=== PATIENT | male | born 1935 | race Caucasian/White ===

== ENCOUNTER 2022-10-28 10:30 | Emergency (ER) | payer MEDICARE, OTHER, SELFPAY ==
[2022-10-28 10:43] VITALS: BP 151/81; PULSE 69; RESP 18; TEMP 36.1; O2SAT 96; BMI 28.2
[2022-10-28 13:28] VITALS: BP 170/82; PULSE 70; RESP 16; O2SAT 96
--- NOTE | 2022-10-28 13:42 | CRLHL7_ITS ---
For Patients: As a result of the Century Cures Act, medical imaging exams and procedure reports are released immediately into your electronic medical record. You may view this report before your referring provider. If you have questions, please contact your health care provider. INDICATION: Vertigo. TECHNIQUE: CT head without contrast. COMPARISON: MRI scan of the brain 12/12/2020. FINDINGS: CSF spaces: Within normal limits for age. Brain parenchyma and extra-axial spaces: The hess-white differentiation is normal. No sign of mass, hemorrhage, or midline shift. No extra-axial fluid collection. Skull base and calvarium: The visualized paranasal sinuses and mastoid air cells demonstrate no acute or significant findings. The visualized orbits are grossly unremarkable. No skull fractures. IMPRESSION: Unremarkable noncontrast head CT. Please note that all CT scans at this facility use dose modulation, iterative reconstruction, and/or weight-based dosing when appropriate to reduce radiation dose to as low as reasonably achievable. Dictated by Alfonso Reese MD @ 10/28/2022 3:09:32 PM (Electronically Signed)
[2022-10-28 14:17] LABS: Basophils Absolute Auto 0.02 K/uL (0.00-0.30); Basophils Percent Auto 0.3 % (0.0-3.0); Eosinophils Absolute Auto 0.11 K/uL (0.00-0.50); Eosinophils Percent Auto 1.6 % (0.0-7.0); Hematocrit 46.7 % (37.0-53.0); Hemoglobin* 15.6 gm/dL (13.5-17.5); Immature Granulocytes Abs Auto 0.01 K/uL (0.00-0.30); Immature Granulocytes Pct Auto 0.1 %; Mean Corpuscular HGB Conc 33 gm/dL (32-36); Mean Corpuscular Hemoglobin 29 pg (26-34); Mean Corpuscular Volume 87 fL (80-100); Monocytes Percent Auto 5.6 % (0.0-11.0); Neutrophils Percent Auto 76.4 % (42.0-72.0); Platelet Count* 207 K/uL (140-440); RDW Coefficient of Variation % 12.3 % (11.5-15.5); Red Blood Count 5.35 m/uL (4.30-5.90); White Blood Count* 6.75 K/uL (4.50-11.00)
[2022-10-28 14:30] LABS: INR 1.01 (0.91-1.10); Prothrombin Time 13.9 Seconds
[2022-10-28 14:31] LABS: Chloride* 101 mmol/L (96-114); Partial Thromboplastin Time* 29 Seconds (23-33); Potassium* 4.3 mmol/L (3.6-5.1); Sodium* 137 mmol/L (135-149)
[2022-10-28 14:34] LABS: Blood Urea Nitrogen* 18 mg/dL (7-30); Carbon Dioxide* 26 mmol/L (20-32); Creatinine* 0.9 mg/dL (0.5-1.5); Est. Creatinine Clearance* 50.49; Estimated Glomerular Filt Rate 84 ml/min
[2022-10-28 14:35] LABS: Calcium* 9.3 mg/dL (8.4-10.6); Glucose* 99 mg/dL (60-115)
[2022-10-28 14:42] LABS: Slide Review Reflex No
[2022-10-28] MEDS: 0.9 % SODIUM CHLORIDE 1000 ml 1,000 ML IV (14:55)
--- NOTE | 2022-10-28 15:04 | ED.DIZZY ---
HPI - Dizziness General Date Seen: 10/28/22 Chief Complaint: Dizziness/Vertigo Stated Complaint: Lightheaded, disoriented Time Seen by Provider: 10/28/22 13:22 Source: patient and family Mode of arrival: ambulatory Limitations: no limitations History of Present Illness HPI Narrative: Patient is a 87-year-old gentleman who presents here for evaluation of a vertigo, this occurred for the 1st time this morning when he turned over in bed, he did wake up normal feeling and did walk to the bathroom before this occurred. his eyes were closed but he felt the bright light, and then felt the room going around in circles this lasted for a few minutes, then resolve, then the same thing happened twice more when he bent forward, he did not get the bright lights, but felt the feeling of a rotational issues associated with this. Denies any numbness tingling or weakness of his hands or his feet. He was trying to reproduce this well with in the waiting room, there was a long wait to get here into the emergency room, but over the last 2 hours he has had no further symptoms. He does not have a history of any walking issues, balance issues, injury, fevers chills or sweats or other issues. Did not take anything for this is company by his here, he does have a history of seizures, the took a long time to be diagnose, but has been stabilized on Keppra. I do note in his chart he has had MRIs and MRAs of his head, that were reassuring. MD elicited complaint: dizziness and lightheadedness Timing: sudden onset Description: sense of movement and room spinning History of similar symptoms: No Exacerbating factors: change in body position Relieving factors: remaining still Associated symptoms: denies other symptoms Related Data Home Medications Medication Instructions Recorded Confirmed aspirin 81 mg tablet,delayed 81 mg PO .EVERY OTHER DAY 04/15/22 10/28/22 release (Adult Aspirin Regimen) cyanocobalamin (vitamin B-12) 1,000 mcg PO DAILY 04/15/22 10/28/22 1,000 mcg tablet multivitamin (Multiple Vitamins 1 tab PO QDAY 04/15/22 10/28/22 tablet) Previous Rx's Medication Instructions Recorded rosuvastatin 10 mg tablet See Rx Instructions .Route 04/15/22 .COMPLEX #90 tabs levetiracetam 500 mg tablet 500 mg PO BID #180 tabs 08/25/22 Allergies Allergy/AdvReac Type Severity Reaction Status Date / Time No Known Drug Allergies Allergy Verified 06/17/22 11:02 Review of Systems Status of ROS: Reports: 10 or more systems reviewed and unremarkable except as noted in History and below [facility] Medical History Health care directive on file ?Z78.9 - Other specified health status (ICD-10) Surgical History Status post tonsillectomy and adenoidectomy ?Z90.89 - Acquired absence of other organs (ICD-10) Social History Smoking Status: Never smoker How often do you have a drink containing alcohol: never AUDIT-C Alcohol total score: 0 Non-prescribed substance use: denies use Little interest or pleasure in doing things: not at all Feeling down, depressed, or hopeless: not at all Exam Narrative: Exam Narrative: On examination here he is in no apparent distress speaking to me normally speech is very good. Oriented x3 with a GCS of 15/15. His pupils are equal round reactive to light he tracks normally visual colmenares are normal on testing, there is no nystagmus, his at TMs bilaterally are normal his oropharynx normal cranial nerves 3-12 are normal. Normal sensation is noted across his face. Carotid upstrokes are equal bilaterally, his neck is supple full range of motion I am unable to reproduce with movement of his neck what went on. Chest is clear bilaterally with no wheezes crackles easy respirations heart sounds show a blowing 2 out of 6 systolic murmur across the left sternal border, consistent with aortic stenosis. Abdomen is soft there is no guarding no organomegaly, bowel sounds are normal, he moves all extremities independently and well, fine motor movements fingers nose testing, heel-ahumada testing, reflexes, proximal distal muscle strength, a muscle bulk are normal bilaterally skin reveals no petechiae rashes. Const: Vital Signs, click to edit/add: Vital Signs - 24 hr 10/28/22 10:43 10/28/22 13:28 Temperature 97.0 F L Pulse Rate [Right Pulse Oximeter] 69 70 Respiratory Rate 18 16 Blood Pressure [Ri ght Upper Arm] 151/81 H 170/82 H Pulse Oximetry 96 96 Oxygen Delivery Me thod Room Air Room Air Documenting provider has reviewed patient's vital signs: yes Course Course Hospital Course: Reassuring head CT, along with laboratory work he feels good right now, and I think this more likely is benign positional vertigo, unfortunately I think his aortic stenosis is the bigger issue, we will endeavor to get a Cardiology appointment I was able to get the medical equipment technician to do ultrasound here. Patient feels good would like to go Vital Signs Vital signs: Initial Vital Signs Temperature 97.0 F L 10/28/22 10:43 Temperature Source Temporal Artery Scan 10/28/22 10:43 Pulse Rate 69 10/28/22 10:43 Respiratory Rate 18 10/28/22 10:43 Blood Pressure 151/81 H 10/28/22 10:43 Blood Pressure Mean 104 10/28/22 10:43 Blood Pressure Position Sitting 10/28/22 10:43 Pulse Oximetry 96 10/28/22 10:43 Oxygen Delivery Method Room Air 10/28/22 10:43 Vital Signs Temperature 97.0 F L 10/28/22 10:43 Pulse Rate 69 10/28/22 10:43 Respiratory Rate 18 10/28/22 10:43 Blood Pressure 151/81 H 10/28/22 10:43 Pulse Oximetry 96 10/28/22 10:43 Oxygen Delivery Method Room Air 10/28/22 10:43 Temperature 97.0 F L 10/28/22 10:43 Pulse Rate 70 10/28/22 13:28 Respiratory Rate 16 10/28/22 13:28 Blood Pressure 170/82 H 10/28/22 13:28 Pulse Oximetry 96 10/28/22 13:28 Oxygen Delivery Method Room Air 10/28/22 13:28 MDM - Dizziness MDM Narrative Medical decision making narrative: Life-threatening differential diagnosis considered include, CVA, other differential diagnosis include BPPV, labyrinthitis, Meniere's disease, vestibular neuronitis, migraine, multiple sclerosis, otitis media, viral syndrome as well as other etiologies Differential Diagnosis Differential diagnosis: Likely adverse reaction to drug, benign paroxysmal positional vertigo, orthostatic hypotension, vertebral basilar insufficiency, cerebrovascular accident, acute vestibular neuronitis and transient cerebral ischemia Medical Records Attestation: I reviewed the patient's medical records. Lab Data Attestation: I reviewed the patient's lab results. Labs: Lab Results 10/28/22 10/28/22 Range/Units 13:43 14:00 WBC 6.75 (4.50-11.00) K/uL RBC 5.35 (4.30-5.90) m/uL Hgb 15.6 (13.5-17.5) gm/dL Hct 46.7 (37.0-53.0) % MCV 87 (80-100) fL MCH 29 (26-34) pg MCHC 33 (32-36) gm/dL RDW Coeff of Matilde 12.3 (11.5-15.5) % Plt Count 207 (140-440) K/uL Neut % (Auto) 76.4 H (42.0-72.0) % Lymph % (Auto) 16.0 L (20-44) % [place] % (Auto) 5.6 (0.0-11.0) % Eos % (Auto) 1.6 (0.0-7.0) % Baso % (Auto) 0.3 (0.0-3.0) % Neut # (Auto) 5.20 (1.7-7.0) K/uL Lymph # (Auto) 1.10 (0.90-2.90) K/uL [place] # (Auto) 0.40 (0.00-0.90) K/UL Eos # (Auto) 0.11 (0.00-0.50) K/uL Baso # (Auto) 0.02 (0.00-0.30) K/uL Abs Immat Gran (auto) 0.01 (0.00-0.30) K/uL Imm/Tot Granulo (auto) 0.1 % INR 1.01 (0.91-1.10) APTT 29 (23-33) Seconds Sodium 137 (135-149) mmol/L Potassium 4.3 (3.6-5.1) mmol/L Chloride 101 (96-114) mmol/L Carbon Dioxide 26 (20-32) mmol/L BUN 18 (7-30) mg/dL Creatinine 0.9 (0.5-1.5) mg/dL Estimated Creat Clear 50.49 Estimated GFR 84 ml/min Glucose 99 (60-115) mg/dL Calcium 9.3 (8.4-10.6) mg/dL POC Troponin I 0.00 L (0.01-0.04) ng/ml Imaging Data CT scan - head: Attestation: I have reviewed the pertinent imaging results. My impression: No acute findings Radiologist's impression: Patient: CATHERINE MARQUEZ Facility:?[facility] Patient ID:?[id number] Site Patient ID:?[id number]. Site :?[id number] Study:?CT Head w/o-10/28/2022 2:46:52 PM Ordering Physician:Kristin Tavares Final Report: INDICATION: Vertigo. TECHNIQUE: CT head without contrast. COMPARISON: MRI scan of the brain 12/12/2020. FINDINGS: CSF spaces: Within normal limits for age. Brain parenchyma and extra-axial spaces: The hess-white differentiation is normal. No sign of mass, hemorrhage, or midline shift. No extra-axial fluid collection. Skull base and calvarium: The visualized paranasal sinuses and mastoid air cells demonstrate no acute or significant findings. The visualized orbits are grossly unremarkable. No skull fractures. IMPRESSION: Unremarkable noncontrast head CT. Please note that all CT scans at this facility use dose modulation, iterative reconstruction, and/or weight-based dosing when appropriate to reduce radiation dose to as low as reasonably achievable. Dictated by Alfonso Reese MD @ 10/28/2022 3:09:32 PM (Electronic Signature) ECG Data Attestation: I personally reviewed and interpreted this ECG as follows: ECG interpretation date: 10/28/22 ECG interpretation time: 15:33 Prior ECG tracings: available for review Interpretation: EKG shows normal sinus rhythm, Q-waves inferiorly, ventricular rate [address] wave changes, but there is ST wave flattening noted throughout the precordium that is unchanged. Discharge Plan Discharge Clinical Impression: Benign paroxysmal positional vertigo, Aortic stenosis, severe Patient Disposition: Home w/ Parent or Adult Condition: Stable Instructions: Aortic Balloon Valvuloplasty (DC), Aortic Stenosis (ED), Benign Paroxysmal Positional Vertigo (ED), Dizziness (ED), Transcatheter Aortic Valve Replacement (DC), Aortic Valve Replacement (DC) Additional Instructions: Home rest follow-up with Cardiology, we will try to schedule appointment. Return if increasing chest pain shortness of breath any atypical symptoms regarding the vertigo, such as unilateral weakness, falling, vomiting. You will receive a call from the [facility] Cardiology department within the next week to schedule your follow up appointment. If you haven't received a call by then or have any questions, please call [phone]. Prescriptions: No Action multivitamin [Multiple Vitamins] Tablet 1 tab PO QDAY cyanocobalamin (vitamin B-12) 1,000 mcg tablet 1,000 mcg PO DAILY aspirin [Adult Aspirin Regimen] 81 mg tablet,delayed release (DR/EC) 81 mg PO .EVERY OTHER DAY rosuvastatin 10 mg tablet See Rx Instructions .ROUTE .COMPLEX Qty: 90 3RF Dose Instruction: TAKE 1 TABLET BY MOUTH EVERY DAY Rx Instructions: TAKE 1 TABLET BY MOUTH EVERY DAY levetiracetam 500 mg tablet 500 mg PO BID Qty: 180 0RF Follow Up/Referrals: Lex Mckay MD [Primary Care Provider] - Stand Alone Forms: [employer] ([employer]) Info Instructions
== END 2022-10-28 17:18 | disposition home or self-care (01) ==
PROVIDERS: Emergency Provider Family Medicine; PCP Family Medicine
DX: I35.0 Nonrheumatic aortic (valve) stenosis (principal)
CPT/HCPCS: 36415; 70450; 80048; 84484; 85025; 85610; 85730; 93005; 93306; 99284; 99285; J7030

== ENCOUNTER 2022-12-12 09:30 | Outpatient (RCR) | payer MEDICARE, OTHER, SELFPAY ==
--- NOTE | 2022-11-18 07:42 | PT.OPEX ---
PT [place] Outpatient Eval PT [facility] Outpatient Eval Start: 11/14/22 13:09 Freq: Status: Active Protocol: Document 11/14/22 13:10 AMS (Rec: 11/14/22 17:14 AMS [id number]) E-signed By Evelyn Beltran PT Physical Therapy Outpatient Evaluation Insurance Information Recert Due Date 02/07/23 Insurance Name Medicare B Medical Diagnosis Right knee pain Stiffness of right knee Treating Diagnosis Right knee pain Stiffness of right knee Muscle weakness Impaired gait Referring MD Ifrah Webber Subjective Subjective 87 year old man comes to clinic with his for evaluation of right knee pain/ problem. This past winter, slipped on the ice and twisted knee. Was evaluated by Dr. Mckay and had x-rays done. No acute bony abnormality was noted on x-ray per patient report. Since the injury, the knee has caused problems off and on. In the last 2-3 weeks, the knee seems worse: increased pain and decreased range of motion. Most of the pain is associated with trying to completely straighten the leg. He can flex the knee, but the knee doesn't want to straighten completely. Forcing the knee to straighten hurts. Additionally, there is some increased pain with weight bearing/walking. Occasionally the knee will bother him at night. The knee actually feels better in the morning. He is not experiencing the common: it feels worse first thing in the morning. At the same time, the knee will be stiff and sore if he has been sitting for a while and needs to get up and walk. He somewhat associates the worsening of symptoms with standing on concrete in the garage for a prolonged time about three days ago. He has not noted swelling of the knee. He walks with swinging the right leg out to the side. As a result, he is starting to have pain in the right hip = lateral pelvis area. The patient is in the process of being evaluated by cardiology for a heart murmur. The patient and his understand this heart murmur may be related to a defect Evaluation thus far has included testing that has led to the patient being told he has the heart of a 50 year old. -Ifrah Webber, , confirmed by patient Patient notes chronic right knee pain that came on after a fall on ice in April 2022. Notes a twisting mechanism, not exactly sure direction. He landed on his bottom/side with knee bent. X-rays were done, which were negative for fracture. He has not noticed any swelling. Since April, it has overall improved. Functional limitations/ aggravating factors include extending the knee in weightbearing, getting into and out of the car, walking short distances, putting on shoes/socks, and squatting. He localizes the pain to the posterior knee and describes it as an ache with activity. Does not navigate any stairs at home, so not sure if these bother him. He is not using any gait aid. Easing factors include rest. His knee does not bother him at night. Denies catching, clicking, locking, numbness or tingling. No previous knee injuries. He is not currently exercising. Lives at home with his . Pain Comments 0/10 at rest, 8/10 at worst Date of Last Physician Visit 11/12/33 Current Work Status Retired Preferred Name Gene Precautions Treatment Precautions/Contraindications Hyperlipidemia, history of noctural seizure Weight Bearing Status Full Weight Bearing Objective Other/Pertinent Objective GAIT ASSESSMENT: Ambulates with significantly decreased right knee flexion, mildly decreased stance time, and right LE circumduction. No assistive device. OBSERVATION: Swelling: Sweep test: 0 FUNCTIONAL MOBILITY Double leg squat: To 70 deg, mild pain with return to standing SLS: 2 seconds B KNEE ROM R: 5-0-135 L: 5-0-135 HIP ROM (R/L) Flexion: 100/100 Extension: 20/20 Internal Rotation: 10/10 External Rotation: 45/45 Abduction: WNL LLE MMT: Hip flexion: R 4/5 L 5/5 Hip abduction: R 3+/5 L 5/5 Hip extension: R 4/5 L 5/5 Knee flexion: R 5/5 L 5/5 Knee extension: R 5/5 L 5/5 END RANGE QUAD CONTROL Straight leg raise: No quad lag Heel pop: Lacks actively bilaterally, symmetrical SPECIAL TESTS Knee Ligamentous: -Varus 0: - -Varus 30: - -Valgus 0: - -Valgus 30: - -Lachmans: - Knee Meniscus: -Deep Knee Bend: - -Knee Hyperextension: - -Adrienne?s: + right -Joint Line Palpation: - JOINT MOBILITY/PALPATION No TTP over quad tendon, medial/lateral joint line, posterior knee, tibial tuberosity or surrounding landmarks. TX: Patient was educated on anatomy, physiology as it relates to current condition and HEP with use of handout/ [employer]. Patient verbalizes understanding and agrees with POC/goals -Soreness rules with goal of symptoms returning to baseline within 24 hours and that evening -Discussed option to use a cane or crutch if pain does not improve with walking next visit Pt educated in the following exercises to improve range of motion, tissue tolerance, and/ or strength with verbal/ tactile cues as necessary: Access Code: [email or web address] URL: [email or web address] Date: 11/14/2022 Prepared by: Evelyn Beltran Program Notes Weight shifts: bend, straighten, heel, toe - return to start.? Exercises - Long Sitting Knee Extension with Towel Foot Lift - 1 x daily - 7 x weekly - 3 sets - 10 reps - Small Range Straight Leg Raise - 1 x daily - 7 x weekly - 2 sets - 10 reps - Staggered Stance Forward Backward Weight Shift with Unilateral Counter Support - 1 x daily - 7 x weekly - 3 sets - 20 reps - Supine Short Arc Quad - 1 x daily - 7 x weekly - 3 sets - 10 reps Functional Test Performed & Score LEFS: not completely filled out Assessment Assessment/Impression Pt is a 87 -year-old male who presents with concerns of chronic right knee pain and moderate to high severity and irritability. Signs and symptoms are likely indicating / consistent with potential degenerative meniscal tear after a fall on ice in April. X-rays performed and negative for fracture. On exam, patient also demonstrates notable objective findings including full and pain-free knee range of motion , impaired balance, impaired gait, positive Adrienne's, decreased end range quad control bilaterally, and decreased strength, leading to difficulties with extending the knee in weightbearing, getting into and out of the car, walking short distances, putting on shoes/socks, and squatting. Pt ambulates with significantly decreased knee flexion on right; spent portion of today's session working on increased knee flexion during swing through/ normalized gait mechanics. May benefit from gait aid until pain levels decrease if pain with walking does not improve by next visit. Patient is appropriate for skilled physical therapy services to address the above deficits. Pt was agreeable with plan of care and goals established. Primary Functional Limitations extending the knee in weightbearing, getting into and out of the car, walking short distances, putting on shoes/socks, and squatting Plan of Care Rehabilitation Potential Good Physical Therapy Goals In 2 sessions: Pt will demonstrate consistent HEP compliance to ensure progress in reaching established goals during course of care. In 8 sessions: Pt will walk 10 blocks with <2 /10 knee pain for improved community mobility. Pt will squat with <2/10 knee pain for improved ability to perform ADLs. Pt will demonstrate normalized gait mechanics for improved ability to navigate community. Coordination/Communication With Referral Source Treatment Plan/Direct Interventions Electrical Stimulation,Gait Training,Joint Mobilization, Manual Therapy,Neuromuscular Re-ed,Self-Care/Home Management,Therapeutic Activities,Therapeutic Exercises Frequency/Duration 1x/week for 8 weeks Patient Will Be Discharged From Therapy Completion of LTG(s), Independent w/HEP, Independently Progressing Evaluation Billing Untimed Code Treatment Minutes 25 Complexity Low Certification Information Initial Certification Date 11/14/22 Ending Certification Date 02/07/23 Provider Signature Shows Agreement With POC & Medical Necessity Physician Signature & Date Requested Please Sign/Date Here Physician Comment/Change : Physician NPI Number #
== END 2023-02-20 17:26 | disposition home or self-care (01) ==
PROVIDERS: PCP Family Medicine; Visit Provider Family Medicine
DX: M25.561 Pain in right knee (principal); M25.661 Stiffness of right knee, not elsewhere classified; R26.9 Unspecified abnormalities of gait and mobility; M62.81 Muscle weakness (generalized); Z51.89 Encounter for other specified aftercare
CPT/HCPCS: 97110; 97116; 97161

== ENCOUNTER 2023-02-23 13:29 | Outpatient (CLI) | payer MEDICARE, OTHER, SELFPAY | END 2023-02-23 13:30 | disposition home or self-care (01) | LOC: LKVREF 13:29 | PROVIDERS: PCP Family Medicine; Visit Provider Family Medicine | DX: E78.5 Hyperlipidemia, unspecified (principal) | CPT/HCPCS: 80061 ==

== ENCOUNTER 2023-02-26 09:59 | Outpatient (CLI) | payer MEDICARE, OTHER, SELFPAY | END 2023-02-26 10:00 | disposition home or self-care (01) | LOC: NFLDREF 02-27 14:48 | PROVIDERS: PCP Family Medicine; Referring Provider Family Medicine; Visit Provider Family Medicine | DX: H54.61 Unqualified visual loss, right eye, normal vision left eye (principal) | CPT/HCPCS: 86140 ==

== ENCOUNTER 2023-03-02 10:37 | Emergency (ER) | payer MEDICARE, OTHER, SELFPAY ==
[2023-03-02] VITALS (31 sets, daily range): BP systolic 110–152; BP diastolic 72–113; PULSE 65–78; RESP 16; TEMP 36.2–36.7; O2SAT 94–98; BMI 25.8
[2023-03-02 11:42] LABS: Basophils Absolute Auto 0.03 K/uL (0.00-0.30); Basophils Percent Auto 0.5 % (0.0-3.0); Eosinophils Absolute Auto 0.12 K/uL (0.00-0.50); Eosinophils Percent Auto 1.9 % (0.0-7.0); Hematocrit 43.5 % (37.0-53.0); Hemoglobin* 14.3 gm/dL (13.5-17.5); Immature Granulocytes Abs Auto 0.01 K/uL (0.00-0.30); Immature Granulocytes Pct Auto 0.2 %; Lymphocytes Percent Auto 16.5 % (20-44); Mean Corpuscular HGB Conc 33 gm/dL (32-36); Mean Corpuscular Hemoglobin 29 pg (26-34); Mean Corpuscular Volume 89 fL (80-100); Monocytes Percent Auto 5.8 % (0.0-11.0); Neutrophils Percent Auto 75.1 % (42.0-72.0); Platelet Count* 152 K/uL (140-440); RDW Coefficient of Variation % 12.2 % (11.5-15.5); Red Blood Count 4.91 m/uL (4.30-5.90); White Blood Count* 6.18 K/uL (4.50-11.00)
[2023-03-02 11:43] LABS: Slide Review Reflex No
[2023-03-02 12:00] LABS: Albumin* 4.4 g/dL (3.3-5.0); Chloride* 100 mmol/L (96-114); Sodium* 135 mmol/L (135-149)
[2023-03-02 12:02] LABS: Est. Creatinine Clearance* 54.01; Estimated Glomerular Filt Rate 74 ml/min
[2023-03-02 12:03] LABS: Alkaline Phosphatase* 83 U/L (40-150); Anion Gap 7 mEq/L (7-15); Aspartate Amino Transferase* 39 U/L (12-35); Bilirubin Direct* 0.1 mg/dL (0.0-0.5); Bilirubin Total* 0.5 mg/dL (0.1-1.5); Blood Urea Nitrogen* 13 mg/dL (7-30); Calcium* 9.1 mg/dL (8.4-10.6); Carbon Dioxide* 28 mmol/L (20-32); Glucose* 142 mg/dL (60-115); Total Protein* 7.9 g/dL (6.0-8.3)
[2023-03-02 12:04] LABS: Alanine Aminotransferase* 44 U/L (4-50)
[2023-03-02 12:10] LABS: C Reactive Protein* 0.7 mg/dL (0.5-1.0)
[2023-03-02 12:27] LABS: NT Pro B Type NatriureticPept* 240 pg/mL
[2023-03-02 12:29] LABS: Erythrocyte SedimentationRate* 13 mm/hr (2-15)
--- NOTE | 2023-03-02 12:35 | ED_ITS ---
HPI - General Adult General Date Seen: 03/02/23 Chief complaint: Chest Pain Stated complaint: Chest tight, headache post heart valve replacement Time Seen by Provider: 03/02/23 11:05 Source: patient, RN notes reviewed, old records reviewed and other Mode of arrival: ambulatory Limitations: no limitations History of Present Illness HPI narrative: Patient is an 87-year-old male here primarily for some chest tightness which he has had intermittently since yesterday. He feels it more when he lays back, and he says he feels cold at the same time. He describes this as a cold sweat but he is not actually breaking out into a sweat. Symptoms last a minute or 2 and then resolved. He had a TAVR on February 18 and says he was told to come in if he had any chest symptoms. He has had a little bit of a headache and fatigue as well, he says he tried to test for COVID at home but he thinks the screw the test up and the library did not have any more free test so he wondered if we could recheck that as well. He did see Dr. Horan last week and at that time describe some visual symptoms which were subsequently followed up at [facility]. Patient was a little unclear exactly on what happened, he says they did a blood test and told me had a stroke. His aspirin was increased from every other day to daily by Dr. Mckay. I was able to speak with Dr. Saenz who [facility]. 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 She says that she talked to Dr. Mckay, he is on a statin, blood pressure has been good, no other further testing was planned. He is seeing Ophthalmology again in follow-up mid March. He has not had fever cough, no shortness of breath, no pleuritic chest pain. No other anticoagulation he does not smoke, here today with his . Related Data Home Medications Medication Instructions Recorded Confirmed cyanocobalamin (vitamin B-12) 1,000 mcg PO DAILY 04/15/22 03/02/23 1,000 mcg tablet multivitamin (Multiple Vitamins 1 tab PO QDAY 04/15/22 03/02/23 tablet) aspirin 81 mg tablet,delayed 81 mg PO QDAY 02/24/23 03/02/23 release (Adult Aspirin Regimen) famotidine 20 mg tablet 20 mg PO QDAY 02/24/23 03/02/23 Previous Rx's Medication Instructions Recorded rosuvastatin 10 mg tablet See Rx Instructions .Route 04/15/22 .COMPLEX #90 tabs levetiracetam 500 mg tablet 500 mg PO BID #180 tabs 11/24/22 Allergies Allergy/AdvReac Type Severity Reaction Status Date / Time No Known Drug Allergies Allergy Verified 02/23/23 12:55 Review of Systems Status of ROS: Reports: 10 or more systems reviewed and unremarkable except as noted in History and below [facility] Medical History Health care directive on file ?Z78.9 - Other specified health status (ICD-10) Surgical History S/P TAVR (transcatheter aortic valve replacement) ?Z95.2 - Presence of prosthetic heart valve (ICD-10) Status post tonsillectomy and adenoidectomy ?Z90.89 - Acquired absence of other organs (ICD-10) Social History Smoking Status: Never smoker Second hand tobacco smoke exposure: No How often do you have a drink containing alcohol: never AUDIT-C Alcohol total score: 0 Non-prescribed substance use: denies use Little interest or pleasure in doing things: not at all Feeling down, depressed, or hopeless: not at all service: No Exam Narrative: Exam Narrative: Vital signs as noted above. In general, an alert, well-appearing patient. Head: Normocephalic, atraumatic. Eyes: Pupils are equal reactive. Extraocular movements are full. Conjunctivae are normal. ENT: Mucous membranes are moist. Neck: Supple without lymphadenopathy. Heart: Regular rate and rhythm. Soft systolic murmur best heard at the right sternal border. Lungs: Clear bilaterally. No increased work of breathing, crackles or wheezes. Abdomen: Soft and nontender. No organomegaly. Extremities: Well perfused. No edema. No calf tenderness. Pulses intact. Neurologic: Patient is alert and oriented to person and place. Speech is fluent. Face is symmetric. Moves all extremities equally. I did not test visual colmenares. Affect: Normal. Skin: Warm and dry. Well perfused. Const: Vital Signs, click to edit/add: Vital Signs - 24 hr 03/02/23 10:45 03/02/23 10:48 03/02/23 10:52 Temperature 97.2 F L Pulse Rate 75 Pulse Rate [Pulse Oximeter] 75 Respiratory Rate 16 Blood Pressure Blood Pressure [Le ft Upper Arm] 152/113 H Pulse Oximetry 97 97 97 Oxygen Delivery Me thod Room Air 03/02/23 10:54 03/02/23 10:55 03/02/23 11:00 Temperature Pulse Rate 74 75 73 Pulse Rate [Pulse Oximeter] Respiratory Rate 16 Blood Pressure 139/98 H Blood Pressure [Le ft Upper Arm] Pulse Oximetry 98 98 96 Oxygen Delivery Me thod 03/02/23 11:01 03/02/23 11:15 03/02/23 11:16 Temperature Pulse Rate 73 78 76 Pulse Rate [Pulse Oximeter] Respiratory Rate Blood Pressure 132/83 133/96 H Blood Pressure [Le ft Upper Arm] Pulse Oximetry 97 96 97 Oxygen Delivery Me thod 03/02/23 11:30 03/02/23 11:31 03/02/23 11:45 Temperature Pulse Rate 70 71 72 Pulse Rate [Pulse Oximeter] Respiratory Rate Blood Pressure 117/72 Blood Pressure [Le ft Upper Arm] Pulse Oximetry 97 98 96 Oxygen Delivery Me thod 03/02/23 11:46 03/02/23 12:00 03/02/23 12:01 Temperature Pulse Rate 71 68 74 Pulse Rate [Pulse Oximeter] Respiratory Rate 16 Blood Pressure 112/72 123/78 Blood Pressure [Le ft Upper Arm] Pulse Oximetry 97 97 97 Oxygen Delivery Me thod 03/02/23 12:02 03/02/23 12:15 03/02/23 12:16 Temperature Pulse Rate 69 68 70 Pulse Rate [Pulse Oximeter] Respiratory Rate Blood Pressure 122/75 Blood Pressure [Le ft Upper Arm] Pulse Oximetry 96 95 97 Oxygen Delivery Me thod 03/02/23 12:30 03/02/23 12:31 03/02/23 12:32 Temperature Pulse Rate 66 69 68 Pulse Rate [Pulse Oximeter] Respiratory Rate 16 Blood Pressure 120/75 Blood Pressure [Le ft Upper Arm] Pulse Oximetry 94 96 96 Oxygen Delivery Me thod 03/02/23 12:45 03/02/23 12:47 03/02/23 13:00 Temperature Pulse Rate 65 65 66 Pulse Rate [Pulse Oximeter] Respiratory Rate Blood Pressure 144/101 H Blood Pressure [Le ft Upper Arm] Pulse Oximetry 98 98 97 Oxygen Delivery Me thod 03/02/23 13:01 03/02/23 13:15 03/02/23 13:16 Temperature Pulse Rate 66 67 68 Pulse Rate [Pulse Oximeter] Respiratory Rate 16 Blood Pressure 126/79 130/85 Blood Pressure [Le ft Upper Arm] Pulse Oximetry 97 98 96 Oxygen Delivery Me thod 03/02/23 13:30 03/02/23 13:32 03/02/23 13:45 Temperature Pulse Rate 66 71 66 Pulse Rate [Pulse Oximeter] Respiratory Rate Blood Pressure 128/90 H Blood Pressure [Le ft Upper Arm] Pulse Oximetry 97 95 97 Oxygen Delivery Me thod 03/02/23 13:46 Temperature 98.0 F Pulse Rate 68 Pulse Rate [Pulse Oximeter] Respiratory Rate 16 Blood Pressure 110/74 Blood Pressure [Le ft Upper Arm] Pulse Oximetry 97 Oxygen Delivery Me thod Documenting provider has reviewed patient's vital signs: yes Course Course ED Course: On arrival, patient had an EKG which showed a normal sinus rhythm, ventricular rate of 77 beats per minute. No ST segment changes, no OH depression to suggest pericarditis. I did look with the bedside ultrasound and I do not see evidence of pericardial effusion. Troponin is 0. I spoke with [facility] as described in the HPI. Labs here are reassuring, white blood cell count is 6, hemoglobin is 14.3. Metabolic panel is entirely within normal limits, LFTs are unremarkable. BNP is 240, COVID is pending at this time. CRP and sed rate are normal today at 0.7 and 13 respectively. No evidence of giant cell arteritis. With regard to his chest symptoms, etiology is likely going to be on clear. Will wait on the COVID test. Symptoms are relatively benign sounding, positional and fleeting. No evidence of pericarditis. No evidence of myocardial ischemia. COVID was positive. Suspect that this is the cause for the bulk of his symptoms. He has been symptomatic for more than 7 days so Paxlovid not indicated. Seems to be doing well overall. Primary care follow-up as planned based on recent events, optometry follow-up in March as planned. Return at any time for acute worsening. Vital Signs Vital signs: Initial Vital Signs Pulse Oximetry 97 03/02/23 10:45 Vital Signs Pulse Oximetry 97 03/02/23 10:45 Temperature 98.0 F 03/02/23 13:46 Pulse Rate 68 03/02/23 13:46 Respiratory Rate 16 03/02/23 13:46 Blood Pressure 110/74 03/02/23 13:46 Pulse Oximetry 97 03/02/23 13:46 Oxygen Delivery Method Room Air 03/02/23 10:48 Medical Decision Making Lab Data Labs: Lab Results 03/02/23 03/02/23 Range/Units 10:50 12:00 WBC 6.18 (4.50-11.00) K/uL RBC 4.91 (4.30-5.90) m/uL Hgb 14.3 (13.5-17.5) gm/dL Hct 43.5 (37.0-53.0) % MCV 89 (80-100) fL MCH 29 (26-34) pg MCHC 33 (32-36) gm/dL RDW Coeff of Matilde 12.2 (11.5-15.5) % Plt Count 152 (140-440) K/uL Neut % (Auto) 75.1 H (42.0-72.0) % Lymph % (Auto) 16.5 L (20-44) % [place] % (Auto) 5.8 (0.0-11.0) % Eos % (Auto) 1.9 (0.0-7.0) % Baso % (Auto) 0.5 (0.0-3.0) % Neut # (Auto) 4.60 (1.7-7.0) K/uL Lymph # (Auto) 1.00 (0.90-2.90) K/uL [place] # (Auto) 0.40 (0.00-0.90) K/UL Eos # (Auto) 0.12 (0.00-0.50) K/uL Baso # (Auto) 0.03 (0.00-0.30) K/uL Abs Immat Gran (auto) 0.01 (0.00-0.30) K/uL Imm/Tot Granulo (auto) 0.2 % ESR 13 (2-15) mm/hr Sodium 135 (135-149) mmol/L Potassium 4.0 (3.6-5.1) mmol/L Chloride 100 (96-114) mmol/L Carbon Dioxide 28 (20-32) mmol/L Anion Gap 7 (7-15) mEq/L BUN 13 (7-30) mg/dL Creatinine 1.0 (0.5-1.5) mg/dL Estimated Creat Clear 54.01 Estimated GFR 74 ml/min Glucose 142 H (60-115) mg/dL Calcium 9.1 (8.4-10.6) mg/dL Total Bilirubin 0.5 (0.1-1.5) mg/dL Direct Bilirubin 0.1 (0.0-0.5) mg/dL AST 39 H (12-35) U/L ALT 44 (4-50) U/L Alkaline Phosphatase 83 (40-150) U/L C-Reactive Protein 0.7 (0.5-1.0) mg/dL NT-Pro-B Natriuret Pep 240 pg/mL Total Protein 7.9 (6.0-8.3) g/dL Albumin 4.4 (3.3-5.0) g/dL SARS-CoV-2 (PCR) POSITIVE SARS-CoV-2 A (Negative) Influenza Type A (PCR) Negative PCR FLU A (Negative) Influenza Type B (PCR) Negative PCR FLU B (Negative) RSV (PCR) Negative PCR RSV (Negative) POC Troponin I 0.00 L (0.01-0.04) ng/ml Discharge Plan Discharge Clinical Impression: COVID-19 Patient Disposition: Home w/ Parent or Adult Condition: Stable Instructions: COVID-19 (Coronavirus Disease 2019) (ED) Prescriptions: No Action multivitamin [Multiple Vitamins] Tablet 1 tab PO QDAY cyanocobalamin (vitamin B-12) 1,000 mcg tablet 1,000 mcg PO DAILY rosuvastatin 10 mg tablet See Rx Instructions .ROUTE .COMPLEX Qty: 90 3RF Dose Instruction: TAKE 1 TABLET BY MOUTH EVERY DAY Rx Instructions: TAKE 1 TABLET BY MOUTH EVERY DAY levetiracetam 500 mg tablet 500 mg PO BID Qty: 180 2RF famotidine 20 mg tablet 20 mg PO QDAY aspirin [Adult Aspirin Regimen] 81 mg tablet,delayed release (DR/EC) 81 mg PO QDAY Follow Up/Referrals: Lex Mckay MD [Primary Care Provider] - Stand Alone Forms: [facility] Inst[facility]
[2023-03-02 12:48] LABS: PCR FLU A Negative PCR FLU A (Negative); PCR FLU B Negative PCR FLU B (Negative); PCR RSV Negative PCR RSV (Negative)
[2023-03-02 13:06] LABS: SARS PCR* POSITIVE SARS-CoV-2 (Negative)
== END 2023-03-02 13:56 | disposition home or self-care (01) ==
PROVIDERS: Emergency Provider Emergency Medicine; PCP Family Medicine
DX: U07.1 COVID-19 (principal)
CPT/HCPCS: 36415; 80048; 80076; 83880; 84484; 85025; 85651; 86140; 87631; 94761; 95992; 99284

== ENCOUNTER 2023-03-23 10:12 | Emergency (ER) | payer MEDICARE, OTHER, SELFPAY ==
[2023-03-23] VITALS (7 sets, daily range): BP systolic 112–120; BP diastolic 74–87; PULSE 66–77; RESP 12–18; TEMP 36.9; O2SAT 95–98; BMI 26.6
--- NOTE | 2023-03-23 10:44 | CRLHL7_ITS ---
For Patients: As a result of the Century Cures Act, medical imaging exams and procedure reports are released immediately into your electronic medical record. You may view this report before your referring provider. If you have questions, please contact your health care provider. INDICATION: Acute stroke, right arm and leg paresthesias. TECHNIQUE: CTA neck with contrast bolus tracking, 3D angiographic rendering using maximum intensity projection (MIP) and images permanently archived. FINDINGS: There is minor carotid atherosclerosis. There is no significant carotid artery stenosis or dissection. There is no significant vertebral artery stenosis or dissection. The soft tissues of the neck are within normal limits. The cervical spine is in normal alignment. Degenerative changes are noted in the cervical spine. IMPRESSION: No significant carotid or vertebral artery stenosis or dissection. Please note that all CT scans at this facility use dose modulation, iterative reconstruction, and/or weight-based dosing when appropriate to reduce radiation dose to as low as reasonably achievable. Dictated by Matteo Candelaria MD @ 03/23/2023 11:52:20 AM (Electronically Signed)
--- NOTE | 2023-03-23 10:44 | CRLHL7_ITS ---
For Patients: As a result of the Century Cures Act, medical imaging exams and procedure reports are released immediately into your electronic medical record. You may view this report before your referring provider. If you have questions, please contact your health care provider. INDICATION: Acute stroke, right arm and leg paresthesias. TECHNIQUE: CTA head with contrast bolus tracking, 3D angiographic rendering using maximum intensity projection (MIP) and images permanently archived. FINDINGS: There is scattered intracranial atherosclerotic disease. There is normal opacification of the intracranial vasculature. There is no large vessel occlusion. No aneurysm is identified. IMPRESSION: No large vessel occlusion. Please note that all CT scans at this facility use dose modulation, iterative reconstruction, and/or weight-based dosing when appropriate to reduce radiation dose to as low as reasonably achievable. Dictated by Matteo Candelaria MD @ 03/23/2023 11:50:21 AM (Electronically Signed)
--- NOTE | 2023-03-23 10:44 | CRLHL7_ITS ---
For Patients: As a result of the Century Cures Act, medical imaging exams and procedure reports are released immediately into your electronic medical record. You may view this report before your referring provider. If you have questions, please contact your health care provider. Indication: Fall Technique: Volumetric multidetector CT images of the head were obtained without the administration of low osmolar intravenous contrast. Comparison: None available Findings: There is no intra-axial or extra-axial fluid collection. There is no mass effect or midline shift. There is age-related cortical atrophy with mild sulcal widening and ex vacuo dilatation of the lateral ventricles. There are chronic small vessel disease changes in the subcortical and periventricular white matter without lost hess-white differentiation. The orbits and their contents are grossly within normal limits. The bony calvarium is grossly intact. There is bubbly secretions and likely nondisplaced injury of the right maxillary sinus posterior wall. The mastoid air cells are well aerated. 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 Minimal bubbly secretions in the right maxillary sinus with questionable deformity of the right posterior maxillary sinus wall which may represent nondisplaced fracture. Correlate with history of injury. Please note that all CT scans at this facility use dose modulation, iterative reconstruction, and/or weight-based dosing when appropriate to reduce radiation dose to as low as reasonably achievable. Dictated by Tae Be MD @ 03/23/2023 11:47:03 AM (Electronically Signed)
--- NOTE | 2023-03-23 10:45 | ED.NURSE ---
Per , stroke code not to be called.
--- NOTE | 2023-03-23 10:47 | CRLHL7_ITS ---
For Patients: As a result of the Century Cures Act, medical imaging exams and procedure reports are released immediately into your electronic medical record. You may view this report before your referring provider. If you have questions, please contact your health care provider. INDICATION: Right arm/leg paresthesias. TECHNIQUE: Multiplanar multisequence noncontrast MR images of the brain. COMPARISON: CT brain 03/23/2023, MRI brain 12/12/2020. FINDINGS: Mild diffuse cerebral volume loss. No mass effect or midline shift. No parenchymal signal abnormalities. No diffusion restriction to suggest acute infarction. No intracranial hemorrhage or pathologic extra-axial fluid collection. The major arterial flow voids of the skullbase are preserved. The globes are symmetric. [id number] right maxillary sinus mucosal thickening. Small left mastoid effusion. IMPRESSION: 1. No acute intracranial abnormality. No significant change compared to the prior exam. 2. Mild diffuse cerebral volume loss. Dictated by Gilbert Brock MD @ 03/23/2023 11:53:11 AM (Electronically Signed)
--- NOTE | 2023-03-23 10:48 | ED.GENADULT ---
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 He does not have a history of atrial fibrillation or stroke otherwise, he takes a baby aspirin every day, no other anticoagulation. I saw him within the past couple of weeks with some chest tightness and headache, COVID was positive, other workup was negative. He comes in today by ambulance saying that since Thursday night he has had several episodes of right arm numbness, more specifically paresthesias. Occasionally he notes some clumsiness of the right hand and occasionally he also has paresthesias in his right leg. He has had some chest tightness on and off as well although this, similarly to last time I saw him, tends to be when he lays back and is not exertional. It is not associated with the arm and leg symptoms either. He says that the arm numbness will last several minutes at a time and then go away. He estimates he has had at less than 10 times since Thursday, presents to the ER on Thursday morning after talking to cardiac rehab this morning and being advised to come in. He was symptomatic in terms of the right arm at the time I began speaking with him although symptoms faded while I was in the room. He is not currently having chest tightness. Related Data Home Medications Medication Instructions Recorded Confirmed cyanocobalamin (vitamin B-12) 1,000 mcg PO DAILY 04/15/22 03/23/23 1,000 mcg tablet multivitamin (Multiple Vitamins 1 tab PO QDAY 04/15/22 03/23/23 tablet) aspirin 81 mg tablet,delayed 81 mg PO QDAY 02/24/23 03/23/23 release (Adult Aspirin Regimen) famotidine 20 mg tablet 20 mg PO QDAY 02/24/23 03/23/23 Previous Rx's Medication Instructions Recorded rosuvastatin 10 mg tablet See Rx Instructions .Route 04/15/22 .COMPLEX #90 tabs levetiracetam 500 mg tablet 500 mg PO BID #180 tabs 11/24/22 Allergies Allergy/AdvReac Type Severity Reaction Status Date / Time No Known Drug Allergies Allergy Verified 03/23/23 11:30 Review of Systems Status of ROS: Reports: 10 or more systems reviewed and unremarkable except as noted in History and below [facility] Medical History Health care directive on file ?Z78.9 - Other specified health status (ICD-10) Surgical History S/P TAVR (transcatheter aortic valve replacement) ?Z95.2 - Presence of prosthetic heart valve (ICD-10) Status post tonsillectomy and adenoidectomy ?Z90.89 - Acquired absence of other organs (ICD-10) Social History Smoking Status: Never smoker Second hand tobacco smoke exposure: No How often do you have a drink containing alcohol: never AUDIT-C Alcohol total score: 0 Non-prescribed substance use: denies use Little interest or pleasure in doing things: not at all Feeling down, depressed, or hopeless: not at all service: No Exam Narrative: Exam Narrative: Vital signs as noted above. In general, an alert, nontoxic elderly male. Conversant, appears comfortable. Head: Normocephalic, atraumatic. Eyes: Pupils are equal reactive. Extraocular movements are full. Conjunctivae are normal. Visual colmenares were not assessed. ENT: Mucous membranes are moist. Throat is normal. Neck: Supple without lymphadenopathy. Heart: Regular rate and rhythm. No murmur or rub. Lungs: Clear bilaterally. No increased work of breathing, crackles or wheezes. Abdomen: Soft and nontender. No organomegaly. Extremities: Well perfused. No edema. No calf tenderness. Pulses intact. Neurologic: Patient is alert and oriented to person and place. Speech is fluent. Face is symmetric. Moves all extremities equally. Strength is 5 of 5 in bilateral upper and lower extremities, sensation is intact to light touch, fine motor function is intact bilaterally. Cerebellar function is intact by finger-nose testing. Affect: Normal. Skin: Warm and dry. Well perfused. Const: Vital Signs, click to edit/add: Vital Signs - 24 hr 03/23/23 10:24 03/23/23 10:28 03/23/23 10:31 Temperature 98.4 F Pulse Rate 77 76 Pulse Rate [Left P ulse Oximeter] 76 Respiratory Rate 18 14 12 Blood Pressure 115/87 117/74 Blood Pressure [Le ft Upper Arm] 115/87 Pulse Oximetry 96 97 95 Oxygen Delivery Me thod Room Air Room Air Documenting provider has reviewed patient's vital signs: yes Course Course ED Course: Patient had an EKG on arrival that showed a sinus rhythm, ventricular rate of 78 beats per minute. No ST segment changes, normal T-waves. I reviewed his records including my previous interaction with him on March 02. Given this ischemic event to the optic nerve I would did elect to do neurologic imaging because of these paresthesias he has had on the right. He had a CT of the head without contrast which I reviewed and did not see any evidence of obvious ischemic changes or hemorrhage. Read as negative by Radiology. He had a CT angiogram of the head and neck read as showing minor carotid stenoses, nothing significant. He had an MRI of the brain read as negative aside from age related changes by Radiology. His labs were entirely normal including CBC, metabolic panel, LFTs. Point of care troponin was 0.01. Case was discussed with Dr. Vazquez who was on-call for Neurology at [place], as well as Dr. Zelaya, who was on-call for Cardiology. Dr. Vazquez felt it would be reasonable to increase him from a baby aspirin to a full size aspirin every day, and also felt that he should have monitoring for AFib. Overall, cause for his paresthesias unclear at this time given normal brain imaging. Cardiology did feel that a ZIO patch was reasonable, may also need evaluation to look for any evidence of clot on the valve although she thought that was unlikely. She said that she would have somebody contact him to get him into Cardiology [facility] for further evaluation and placement of ZIO patch. I relayed all of this to the patient and his , they are comfortable with that plan. Stable for discharge home. Vital Signs Vital signs: Initial Vital Signs Temperature 98.4 F 03/23/23 10:24 Temperature Source Temporal Artery Scan 03/23/23 10:24 Pulse Rate 76 03/23/23 10:24 Respiratory Rate 18 03/23/23 10:24 Blood Pressure 115/87 03/23/23 10:24 Blood Pressure Mean 96 03/23/23 10:24 Blood Pressure Position Sitting 03/23/23 10:24 Pulse Oximetry 96 03/23/23 10:24 Oxygen Delivery Method Room Air 03/23/23 10:24 Vital Signs Temperature 98.4 F 03/23/23 10:24 Pulse Rate 76 03/23/23 10:24 Respiratory Rate 18 03/23/23 10:24 Blood Pressure 115/87 03/23/23 10:24 Pulse Oximetry 96 03/23/23 10:24 Oxygen Delivery Method Room Air 03/23/23 10:24 Temperature 98.4 F 03/23/23 10:24 Pulse Rate 76 03/23/23 10:31 Respiratory Rate 12 03/23/23 10:31 Blood Pressure 117/74 03/23/23 10:31 Pulse Oximetry 95 03/23/23 10:31 Oxygen Delivery Method Room Air 03/23/23 10:31 Medications Administered Medications: Discontinued Medications Generic Name Dose Route Start Last Admin Trade Name Freq PRN Reason Stop Dose Admin Aspirin 324 mg 03/23/23 10:43 03/23/23 11:45 Aspirin 81 Mg Tab.Chew PO 03/23/23 10:44 324 mg ONCE ONE Administration Medical Decision Making Lab Data Labs: Lab Results 03/23/23 Range/Units 10:33 WBC 5.86 (4.50-11.00) K/uL RBC 4.71 (4.30-5.90) m/uL Hgb 13.9 (13.5-17.5) gm/dL Hct 41.4 (37.0-53.0) % MCV 88 (80-100) fL MCH 30 (26-34) pg MCHC 34 (32-36) gm/dL RDW Coeff of Matilde 12.2 (11.5-15.5) % Plt Count 156 (140-440) K/uL Neut % (Auto) 72.7 H (42.0-72.0) % Lymph % (Auto) 18.4 L (20-44) % [place] % (Auto) 5.3 (0.0-11.0) % Eos % (Auto) 2.7 (0.0-7.0) % Baso % (Auto) 0.7 (0.0-3.0) % Neut # (Auto) 4.30 (1.7-7.0) K/uL Lymph # (Auto) 1.10 (0.90-2.90) K/uL [place] # (Auto) 0.30 (0.00-0.90) K/UL Eos # (Auto) 0.16 (0.00-0.50) K/uL Baso # (Auto) 0.04 (0.00-0.30) K/uL Abs Immat Gran (auto) 0.01 (0.00-0.30) K/uL Imm/Tot Granulo (auto) 0.2 % Sodium 139 (135-149) mmol/L Potassium 3.9 (3.6-5.1) mmol/L Chloride 105 (96-114) mmol/L Carbon Dioxide 28 (20-32) mmol/L Anion Gap 6 L (7-15) mEq/L BUN 16 (7-30) mg/dL Creatinine 1.1 (0.5-1.5) mg/dL Estimated Creat Clear 47.50 Estimated GFR 66 ml/min Glucose 134 H (60-115) mg/dL Calcium 8.9 (8.4-10.6) mg/dL Total Bilirubin 0.6 (0.1-1.5) mg/dL Direct Bilirubin 0.0 (0.0-0.5) mg/dL AST 35 (12-35) U/L ALT 31 (4-50) U/L Alkaline Phosphatase 73 (40-150) U/L C-Reactive Protein < 0.5 L (0.5-1.0) mg/dL Total Protein 7.5 (6.0-8.3) g/dL Albumin 4.4 (3.3-5.0) g/dL POC Troponin I 0.01 (0.01-0.04) ng/ml Discharge Plan Discharge Clinical Impression: Paresthesia of right upper and lower extremity, Chest pain Patient Disposition: Home, Self-Care Condition: Improved Instructions: Chest Pain (DC), Paresthesia (ED) Additional Instructions: You should get a call from the Cardiology Clinic at [place] to schedule a follow-up visit with them and set up a ZIO patch. Your workup today however is very reassuring, there is not evidence of significant narrowing of blood vessels or obvious stroke on your MRI/CT. The neurologist does recommend that you increase your aspirin from a baby aspirin (81 mg) to a regular aspirin (324 mg) daily. Return at any time for acute severe symptoms. Prescriptions: No Action multivitamin [Multiple Vitamins] Tablet 1 tab PO QDAY cyanocobalamin (vitamin B-12) 1,000 mcg tablet 1,000 mcg PO DAILY rosuvastatin 10 mg tablet See Rx Instructions .ROUTE .COMPLEX Qty: 90 3RF Dose Instruction: TAKE 1 TABLET BY MOUTH EVERY DAY Rx Instructions: TAKE 1 TABLET BY MOUTH EVERY DAY levetiracetam 500 mg tablet 500 mg PO BID Qty: 180 2RF famotidine 20 mg tablet 20 mg PO QDAY aspirin [Adult Aspirin Regimen] 81 mg tablet,delayed release (DR/EC) 81 mg PO QDAY Follow Up/Referrals: Lex Mckay MD [Primary Care Provider] - Stand Alone Forms: [employer] Info Instructions
[2023-03-23 10:59] LABS: Basophils Absolute Auto 0.04 K/uL (0.00-0.30); Basophils Percent Auto 0.7 % (0.0-3.0); Eosinophils Absolute Auto 0.16 K/uL (0.00-0.50); Eosinophils Percent Auto 2.7 % (0.0-7.0); Hematocrit 41.4 % (37.0-53.0); Hemoglobin* 13.9 gm/dL (13.5-17.5); Immature Granulocytes Abs Auto 0.01 K/uL (0.00-0.30); Immature Granulocytes Pct Auto 0.2 %; Lymphocytes Percent Auto 18.4 % (20-44); Mean Corpuscular HGB Conc 34 gm/dL (32-36); Mean Corpuscular Hemoglobin 30 pg (26-34); Mean Corpuscular Volume 88 fL (80-100); Monocytes Percent Auto 5.3 % (0.0-11.0); Neutrophils Percent Auto 72.7 % (42.0-72.0); Platelet Count* 156 K/uL (140-440); RDW Coefficient of Variation % 12.2 % (11.5-15.5); Red Blood Count 4.71 m/uL (4.30-5.90); White Blood Count* 5.86 K/uL (4.50-11.00)
[2023-03-23 11:11] LABS: Chloride* 105 mmol/L (96-114); Sodium* 139 mmol/L (135-149)
[2023-03-23 11:12] LABS: Potassium* 3.9 mmol/L (3.6-5.1)
[2023-03-23 11:13] LABS: Albumin* 4.4 g/dL (3.3-5.0)
[2023-03-23 11:14] LABS: Creatinine* 1.1 mg/dL (0.5-1.5); Estimated Glomerular Filt Rate 66 ml/min
[2023-03-23 11:15] LABS: Anion Gap 6 mEq/L (7-15); Bilirubin Total* 0.6 mg/dL (0.1-1.5); Blood Urea Nitrogen* 16 mg/dL (7-30); Calcium* 8.9 mg/dL (8.4-10.6); Carbon Dioxide* 28 mmol/L (20-32); Glucose* 134 mg/dL (60-115); Total Protein* 7.5 g/dL (6.0-8.3)
[2023-03-23 11:16] LABS: Alanine Aminotransferase* 31 U/L (4-50); Alkaline Phosphatase* 73 U/L (40-150); Aspartate Amino Transferase* 35 U/L (12-35)
[2023-03-23 11:20] LABS: C Reactive Protein* < 0.5 mg/dL (0.5-1.0)
[2023-03-23 11:22] LABS: Slide Review Reflex No
[2023-03-23 11:32] LABS: Troponin, Point-of-Care* 0.01 ng/ml (0.01-0.04)
[2023-03-23] MEDS: ASPIRIN 81 MG TAB.CHEW 324 MG PO (11:45)
== END 2023-03-23 13:02 | disposition home or self-care (01) ==
PROVIDERS: Emergency Provider Emergency Medicine; PCP Family Medicine
DX: R07.9 Chest pain, unspecified (principal); R20.2 Paresthesia of skin
CPT/HCPCS: 36415; 70450; 70496; 70498; 70551; 80048; 80076; 84484; 85025; 86140; 93005; 99284; 99285; A9270; Q9967

== ENCOUNTER 2023-05-20 12:41 | Outpatient (CLI) | payer MEDICARE, OTHER, SELFPAY | END 2023-05-20 12:42 | disposition home or self-care (01) | LOC: NFLDREF 06-03 08:44 | PROVIDERS: PCP Family Medicine; Referring Provider Family Medicine; Visit Provider Family Medicine | DX: Z79.01 Long term (current) use of anticoagulants (principal) | CPT/HCPCS: 85610 ==

== ENCOUNTER 2023-08-23 15:42 | Emergency (ER) | payer MEDICARE, OTHER, SELFPAY ==
[2023-08-23 15:48] VITALS: BP 154/75; PULSE 68; RESP 16; TEMP 36.9; O2SAT 96; BMI 25.1
--- NOTE | 2023-08-23 16:18 | CRLHL7_ITS ---
For Patients: As a result of the Century Cures Act, medical imaging exams and procedure reports are released immediately into your electronic medical record. You may view this report before your referring provider. If you have questions, please contact your health care provider. INDICATION: weakness/s/p taver TECHNIQUE: CT of the head without contrast. Coronal and sagittal reformats. Bone and soft tissue algorithms. COMPARISON: MRI of 03/23/2023, CT 03/23/2023 FINDINGS: No acute intracranial hemorrhage or extra-axial collection. No evidence of acute cortical infarction. No mass effect or midline shift. Mild generalized parenchymal volume loss. Mild regions of decreased attenuation within the periventricular and subcortical white matter of both cerebral hemispheres most likely reflects chronic microvascular ischemic disease and age related change in this patient. Vascular calcifications within the carotid siphons. Orbital contents are normal. No calvarial fractures. No lytic or sclerotic osseous lesions within the calvarium or skull base. Scalp and other imaged soft tissue structures are normal. Mastoid air cells are clear. IMPRESSION: No acute intracranial abnormality. No significant changes compared to the prior exam. Please note that all CT scans at this facility use dose modulation, iterative reconstruction, and/or weight-based dosing when appropriate to reduce radiation dose to as low as reasonably achievable. Dictated by Riley Cadena MD @ 08/23/2023 4:52:28 PM (Electronically Signed)
--- NOTE | 2023-08-23 16:20 | ED_ITS ---
HPI - General Adult General Chief complaint: Neuro Symptoms/Altered Deficit Stated complaint: Intermittent fever/numbness Time Seen by Provider: 08/23/23 15:58 History of Present Illness HPI narrative: 87-year-old white male who in February had a TAVR procedure for aortic stenosis, he got put on Coumadin in April by the [facility] floral specialist. He reports that since starting Coumadin he has had some intermittent numbness feeling and tingling in his upper chest occasionally in his head, he had 1 episode of imbalance. He denies any focal neurologic weakness denies any chest pain, breathing problem, leg swelling or edema. His INR has been followed carefully it has been normal. He works with Dr. Noble is adjusted his medicine and they have not noticed much difference with this. He does have remote history of seizure but has not had these for some time and he is on Lamictal. He is concerned about this and wants to have it looked at. He does not feel anxious, although he says this happens perhaps every 3rd day every 5th day and he will gets some tingling in his body and little passed within a few seconds to a half a minute. He reports he does not feel stressed or anxious with this. Although he has just had a major cardiac procedure. Related Data Home Medications ?Medication ?Instructions ?Recorded ?Confirmed cyanocobalamin (vitamin B-12) 1,000 mcg PO DAILY 04/15/22 08/23/23 1,000 mcg tablet multivitamin (Multiple Vitamins 1 tab PO QDAY 04/15/22 08/23/23 tablet) famotidine 20 mg tablet 20 mg PO QDAY 02/24/23 08/23/23 Previous Rx's ?Medication ?Instructions ?Recorded rosuvastatin 10 mg tablet See Rx Instructions .Route 04/13/23 .COMPLEX #90 tabs warfarin 3 mg tablet 4.5 mg PO QDAY #136 tabs 07/09/23 levetiracetam 500 mg tablet 500 mg PO BID #180 tabs 08/21/23 Allergies Allergy/AdvReac Type Severity Reaction Status Date / Time No Known Drug Allergies Allergy Verified 03/23/23 11:30 Review of Systems Status of ROS: Reports: 6 or more systems reviewed and unremarkable except as noted in History and below PFS PFS Medical History COVID-19 ?U07.1 - COVID-19 (ICD-10) Health care directive on file ?Z78.9 - Other specified health status (ICD-10) Surgical History S/P TAVR (transcatheter aortic valve replacement) ?Z95.2 - Presence of prosthetic heart valve (ICD-10) Status post tonsillectomy and adenoidectomy ?Z90.89 - Acquired absence of other organs (ICD-10) Social History Smoking Status: Never smoker Second hand tobacco smoke exposure: No How often do you have a drink containing alcohol: never AUDIT-C Alcohol total score: 0 Non-prescribed substance use: denies use Little interest or pleasure in doing things: not at all Feeling down, depressed, or hopeless: not at all service: No Exam Narrative: Exam Narrative: Objective: Patient is alert orient x3 in no distress, no ambulatory, appears much younger than stated age His vital signs look unremarkable other than slightly elevated blood pressure. He is afebrile HEENT is unremarkable no facial asymmetry no weakness no mouth findings Neck is supple Chest clear Heart rate and rhythm regular with 2 6 systolic murmur, no ectopy noted Abdomen benign soft Extremities normal strength sensation upper lower extremities Const: Vital Signs, click to edit/add: Vital Signs - 24 hr 08/23/23 15:48 Temperature 98.4 F Pulse Rate [Pulse Oximeter] 68 Respiratory Rate 16 Blood Pressure [Ri ght Upper Arm] 154/75 H Pulse Oximetry 96 Oxygen Delivery Me thod Room Air Course Vital Signs Vital signs: Initial Vital Signs Temperature 98.4 F 08/23/23 15:48 Temperature Source Temporal Artery Scan 08/23/23 15:48 Pulse Rate 68 08/23/23 15:48 Respiratory Rate 16 08/23/23 15:48 Blood Pressure 154/75 H 08/23/23 15:48 Blood Pressure Mean 101 08/23/23 15:48 Blood Pressure Position Sitting 08/23/23 15:48 Pulse Oximetry 96 08/23/23 15:48 Oxygen Delivery Method Room Air 08/23/23 15:48 Vital Signs Temperature 98.4 F 08/23/23 15:48 Pulse Rate 68 08/23/23 15:48 Respiratory Rate 16 08/23/23 15:48 Blood Pressure 154/75 H 08/23/23 15:48 Pulse Oximetry 96 08/23/23 15:48 Oxygen Delivery Method Room Air 08/23/23 15:48 Temperature 98.4 F 08/23/23 15:48 Pulse Rate 68 08/23/23 15:48 Respiratory Rate 16 08/23/23 15:48 Blood Pressure 154/75 H 08/23/23 15:48 Pulse Oximetry 96 08/23/23 15:48 Oxygen Delivery Method Room Air 08/23/23 15:48 Medical Decision Making MDM Narrative Medical decision making narrative: [age] year white male with a recent TAVR procedure on Coumadin with a therapeutic INR. With some intermittent tingly feeling across his chest. I suspect this may be anxiety related but he does not feel it is. I think it be reasonable to check out a head CT scan again as well as EKG, troponin, lab studies. The the thought is that this could be atypical seizure type issue but that does not seem logical given it is not focal and given its unusual presentation. I do not think this is related to his Coumadin usage. I think he will get the above-mentioned workup and then I would recommend he follow up with Cardiology as planned and perhaps see Dr. Horan next week or so to discuss his symptoms. Addendum 5:38 p.m.: The page the patient has a negative head CT, he has an EKG that looks unremarkable other than occasional PVC: Patient's lab studies look reassuring, his CBC looks unremarkable, his INR is 2.10, ER profile is unremarkable CRP is negative Point of care troponin is 0. At this point I do not have a great explanation for why he gets occasional tingling in his chest and upper body, but I suspect he may have an anxiety component. He should talk about this with Dr. Horan. Perhaps some antianxiety medicine might be helpful for him Lab Data Labs: Lab Results 08/23/23 08/23/23 Range/Units 16:19 16:36 WBC 5.73 (4.50-11.00) K/uL RBC 4.72 (4.30-5.90) m/uL Hgb 13.9 (13.5-17.5) gm/dL Hct 42.4 (37.0-53.0) % MCV 90 (80-100) fL MCH 29 (26-34) pg MCHC 33 (32-36) gm/dL RDW Coeff of Matilde 12.8 (11.5-15.5) % Plt Count 180 (140-440) K/uL Neut % (Auto) 70.0 (42.0-72.0) % Lymph % (Auto) 18.8 L (20-44) % [place] % (Auto) 7.9 (0.0-11.0) % Eos % (Auto) 2.6 (0.0-7.0) % Baso % (Auto) 0.5 (0.0-3.0) % Neut # (Auto) 4.01 (1.7-7.0) K/uL Lymph # (Auto) 1.10 (0.90-2.90) K/uL [place] # (Auto) 0.50 (0.00-0.90) K/UL Eos # (Auto) 0.15 (0.00-0.50) K/uL Baso # (Auto) 0.03 (0.00-0.30) K/uL Abs Immat Gran (auto) 0.01 (0.00-0.30) K/uL Imm/Tot Granulo (auto) 0.2 % INR 2.10 H (0.91-1.10) Sodium 138 (135-149) mmol/L Potassium 4.2 (3.6-5.1) mmol/L Chloride 105 (96-114) mmol/L Carbon Dioxide 27 (20-32) mmol/L Anion Gap 6 L (7-15) mEq/L BUN 23 (7-30) mg/dL Creatinine 1.2 (0.5-1.5) mg/dL Estimated Creat Clear 45.01 Estimated GFR 59 ml/min Glucose 111 (60-115) mg/dL Calcium 9.0 (8.4-10.6) mg/dL Total Bilirubin 0.7 (0.1-1.5) mg/dL Direct Bilirubin 0.4 (0.0-0.5) mg/dL AST 35 (12-35) U/L ALT 27 (4-50) U/L Alkaline Phosphatase 61 (40-150) U/L C-Reactive Protein < 0.5 L (0.5-1.0) mg/dL NT-Pro-B Natriuret Pep 217 pg/mL Total Protein 7.6 (6.0-8.3) g/dL Albumin 4.7 (3.3-5.0) g/dL POC Troponin I 0.00 L (0.01-0.04) ng/ml Discharge Plan Discharge Clinical Impression: Dysesthesia, Status post transcatheter aortic valve replacement (TAVR) using bioprosthesis Patient Disposition: Home w/ Parent or Adult Condition: Stable Additional Instructions: Follow-up with Dr. Horan within the next week to 10 days, recommend he follow up with floral specialist as well at some point. Continue usual medicines and activities. Activity Level: No Restrictions Discharge Diet: Regular Prescriptions: No Action multivitamin [Multiple Vitamins] Tablet 1 tab PO QDAY cyanocobalamin (vitamin B-12) 1,000 mcg tablet 1,000 mcg PO DAILY famotidine 20 mg tablet 20 mg PO QDAY rosuvastatin 10 mg tablet See Rx Instructions .ROUTE .COMPLEX Qty: 90 3RF Dose Instruction: TAKE 1 TABLET BY MOUTH EVERY DAY Rx Instructions: TAKE 1 TABLET BY MOUTH EVERY DAY warfarin 3 mg tablet 4.5 mg PO QDAY Qty: 136 0RF Protocol: Dose Management Condition: Thursday Dose/Route: 4.5 mg Instruction: 1.5 x 3 mg tablets Condition: Thursday Dose/Route: 4.5 mg Instruction: 1.5 x 3 mg tablets Condition: Thursday Dose/Route: 4.5 mg Instruction: 1.5 x 3 mg tablets Condition: Thursday Dose/Route: 4.5 mg Instruction: 1.5 x 3 mg tablets Condition: Dose/Route: 4.5 mg Instruction: 1.5 x 3 mg tablets Condition: Thursday Dose/Route: 4.5 mg Instruction: 1.5 x 3 mg tablets Condition: Thursday Dose/Route: 4.5 mg Instruction: 1.5 x 3 mg tablets Protocol Text: Adjustment Start Date: Thursday08/11/23 INR Value: 2.4 INR Date: 08/11/23 Recheck Date: 08/18/23 levetiracetam 500 mg tablet 500 mg PO BID Qty: 180 0RF Follow Up/Referrals: Lex Mckay MD [Primary Care Provider] - Stand Alone Forms: [employer] Info Instructions
[2023-08-23 16:48] LABS: Basophils Absolute Auto 0.03 K/uL (0.00-0.30); Basophils Percent Auto 0.5 % (0.0-3.0); Eosinophils Absolute Auto 0.15 K/uL (0.00-0.50); Eosinophils Percent Auto 2.6 % (0.0-7.0); Hematocrit 42.4 % (37.0-53.0); Hemoglobin* 13.9 gm/dL (13.5-17.5); Immature Granulocytes Abs Auto 0.01 K/uL (0.00-0.30); Immature Granulocytes Pct Auto 0.2 %; Lymphocytes Percent Auto 18.8 % (20-44); Mean Corpuscular HGB Conc 33 gm/dL (32-36); Mean Corpuscular Hemoglobin 29 pg (26-34); Mean Corpuscular Volume 90 fL (80-100); Monocytes Percent Auto 7.9 % (0.0-11.0); Neutrophils Absolute Auto 4.01 K/uL (1.7-7.0); Platelet Count* 180 K/uL (140-440); RDW Coefficient of Variation % 12.8 % (11.5-15.5); Red Blood Count 4.72 m/uL (4.30-5.90); White Blood Count* 5.73 K/uL (4.50-11.00)
[2023-08-23 16:49] LABS: Slide Review Reflex No
[2023-08-23 17:12] LABS: Albumin* 4.7 g/dL (3.3-5.0)
[2023-08-23 17:13] LABS: Chloride* 105 mmol/L (96-114); Potassium* 4.2 mmol/L (3.6-5.1); Sodium* 138 mmol/L (135-149)
[2023-08-23 17:14] LABS: Prothrombin Time 25.1 Seconds
[2023-08-23 17:15] LABS: Creatinine* 1.2 mg/dL (0.5-1.5); Est. Creatinine Clearance* 45.01; Estimated Glomerular Filt Rate 59 ml/min
[2023-08-23 17:16] LABS: Alanine Aminotransferase* 27 U/L (4-50); Alkaline Phosphatase* 61 U/L (40-150); Anion Gap 6 mEq/L (7-15); Aspartate Amino Transferase* 35 U/L (12-35); Bilirubin Direct* 0.4 mg/dL (0.0-0.5); Bilirubin Total* 0.7 mg/dL (0.1-1.5); Blood Urea Nitrogen* 23 mg/dL (7-30); Carbon Dioxide* 27 mmol/L (20-32); Glucose* 111 mg/dL (60-115); Total Protein* 7.6 g/dL (6.0-8.3)
[2023-08-23 17:29] LABS: C Reactive Protein* < 0.5 mg/dL (0.5-1.0); NT Pro B Type NatriureticPept* 217 pg/mL
== END 2023-08-23 17:55 | disposition home or self-care (01) ==
PROVIDERS: Emergency Provider Family Medicine; PCP Family Medicine
DX: R20.8 Other disturbances of skin sensation (principal); Z95.4 Presence of other heart-valve replacement
CPT/HCPCS: 36415; 70450; 80048; 80076; 83880; 84484; 85025; 85610; 86140; 93005; 99284; 99285

== ENCOUNTER 2023-09-15 08:58 | Outpatient (CLI) | payer MEDICARE, OTHER, SELFPAY | END 2023-09-15 08:59 | disposition home or self-care (01) | LOC: NFLDREF 09-17 11:42 | PROVIDERS: PCP Family Medicine; Referring Provider Family Medicine; Visit Provider Family Medicine | DX: Z79.01 Long term (current) use of anticoagulants (principal); Z86.73 Personal history of transient ischemic attack (TIA), and cerebral infarction without residual deficits | CPT/HCPCS: 85610 ==

== ENCOUNTER 2023-10-20 09:14 | Outpatient (CLI) | payer MEDICARE, OTHER, SELFPAY | END 2023-10-20 09:15 | disposition home or self-care (01) | LOC: NFLDREF 10-21 11:17 | PROVIDERS: PCP Family Medicine; Referring Provider Family Medicine; Visit Provider Family Medicine | DX: Z79.01 Long term (current) use of anticoagulants (principal) | CPT/HCPCS: 85610 ==

== ENCOUNTER 2024-02-22 08:39 | Outpatient (CLI) | payer MEDICARE, OTHER, SELFPAY | END 2024-02-22 08:40 | disposition home or self-care (01) | LOC: RAD 08:40 | PROVIDERS: PCP Family Medicine; Visit Provider Internal Medicine | DX: Z86.73 Personal history of transient ischemic attack (TIA), and cerebral infarction without residual deficits (principal); I07.1 Rheumatic tricuspid insufficiency; I77.819 Aortic ectasia, unspecified site | CPT/HCPCS: 93306 ==

== ENCOUNTER 2024-09-13 08:16 | Outpatient (CLI) | payer MEDICARE, OTHER, SELFPAY | END 2024-09-13 08:17 | disposition home or self-care (01) | PROVIDERS: PCP Family Medicine; Visit Provider Family Medicine | DX: E78.2 Mixed hyperlipidemia (principal); R35.1 Nocturia; Z12.5 Encounter for screening for malignant neoplasm of prostate | CPT/HCPCS: 80048; 80061; G0103 ==

== ENCOUNTER 2025-01-04 08:15 | Emergency (ER) | payer MEDICARE, OTHER, SELFPAY ==
[2025-01-04] VITALS (13 sets, daily range): BP systolic 134–160; BP diastolic 84–107; PULSE 62–74; RESP 8–45; TEMP 36.8; O2SAT 94–98
--- NOTE | 2025-01-04 08:25 | CRLHL7_ITS ---
For Patients: As a result of the Century Cures Act, medical imaging exams and procedure reports are released immediately into your electronic medical record. You may view this report before your referring provider. If you have questions, please contact your health care provider. INDICATION: Bilateral numbness. TECHNIQUE: CT head without contrast. COMPARISON: Head CT 08/23/2023 and 03/23/2023, brain MRI 03/23/2023. FINDINGS: Motion degraded study which limits assessment for subtle abnormalities. Brain parenchyma and extra-axial spaces: The hess-white differentiation is normal. No sign of mass, hemorrhage, or midline shift. No extra-axial fluid collection. Mild parenchymal volume loss. Mild supratentorial and periventricular white matter chronic microvascular ischemic changes. CSF spaces: Compensatory dilatation of the ventricles and basal cisterns within normal limits for age and degree of parenchymal volume loss. Skull base and calvarium: The visualized paranasal sinuses and mastoid air cells demonstrate no acute or significant findings. The visualized orbits are grossly unremarkable. No skull fractures. IMPRESSION: 1. Motion degraded study limits assessment. Within limitations, no acute intracranial abnormality. 2. Mild chronic microvascular ischemic changes. Please note that all CT scans at this facility use dose modulation, iterative reconstruction, and/or weight-based dosing when appropriate to reduce radiation dose to as low as reasonably achievable. Dictated by Casimiro Santiago MD @ 01/04/2025 8:54:39 AM (Electronically Signed)
--- NOTE | 2025-01-04 08:28 | ED.GENADULT ---
HPI - General Adult General Chief complaint: Neuro Symptoms/Altered Deficit Stated complaint: Tingling sensation in head/torso Time Seen by Provider: 01/04/25 08:18 History of Present Illness HPI narrative: Patient is an 89 year white male with a history of anxiety seen by Dr. Cope in the past, has a history of a TAVR aortic valve replacement, he is on long-term aspirin. He reports yesterday and today he has had bilateral facial numbness numbness in his torso bilaterally and in his legs. He notices a little bit of circumoral numbness as well. No hand numbness. He reports that his anxiety does not feel different than normal. 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 No other specific complaints. No chest pain, no shortness of breath, no fever chills. No weakness in his arms or legs, no facial asymmetry noted. No word-finding inability or headache. He also reports that he has had a seizure disorder knees on Keppra and he has had no seizures for years since he has been on that. He has not changed his dose. Related Data Home Medications ?Medication ?Instructions ?Recorded ?Confirmed famotidine 20 mg tablet 20 mg PO QDAY 02/24/23 01/04/25 aspirin 81 mg tablet,delayed 81 mg PO QDAY 01/12/24 01/04/25 release (Adult Low Dose Aspirin) Previous Rx's ?Medication ?Instructions ?Recorded levetiracetam 500 mg tablet 500 mg PO BID #180 tabs 09/13/24 tamsulosin 0.4 mg capsule 0.4 mg PO QDAY #90 caps 09/13/24 Allergies Allergy/AdvReac Type Severity Reaction Status Date / Time No Known Drug Allergies Allergy Verified 01/04/25 08:22 Review of Systems Status of ROS: Reports: 6 or more systems reviewed and unremarkable except as noted in History and below PFSH PFSH Medical History Headache ?R51.9 - Headache, unspecified (ICD-10) 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 ?Z79.01 - 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 (ICD-10) Aortic valve stenosis ?I35.0 - Nonrheumatic aortic (valve) stenosis (ICD-10) COVID-19 ?U07.1 - COVID-19 (ICD-10) Health care directive on file ?Z78.9 - Other specified health status (ICD-10) Surgical History S/P TAVR (transcatheter aortic valve replacement) ?Z95.2 - Presence of prosthetic heart valve (ICD-10) Status post tonsillectomy and adenoidectomy ?Z90.89 - Acquired absence of other organs (ICD-10) Social History What is your current living situation?: I presently have a place to live Problems where you live: no known problems In the past 12 months, utilities in danger of being shut off: no In past 12 months, lack of transportation kept you from medical appts, meetings, work, or getting things needed for daily living: no In the past 12 mos, have been you worried that your food would run out before you had money to buy more?: never true In the past 12 mos, the food you bought just didn't last and you didn't have money to buy more?: never true Smoking Status: Never smoker Second hand tobacco smoke exposure: No How often do you have a drink containing alcohol: never AUDIT-C Alcohol total score: 0 Non-prescribed substance use: denies use How often does anyone, including family, friends and others, physically hurt you: never How often does anyone, including family, friends and others, insult or talk down to you: never How often does anyone, including family, friends and others, threaten you with harm: never How often does anyone, including family, friends and others, scream or curse at you: never service: No Exam Narrative: Exam Narrative: Objective: In general patient apparent distress talks in even unlabored sentences No cyanosis, no scleral icterus, no facial asymmetry, Chest clear Heart rhythm regular 2/6 systolic murmur occasional ectopic beat noted Abdomen benign soft Extremities are no edema neurologic nonfocal No no strength deficit in upper lower extremities. Normal sensation in upper/ lower extremities. Patient's mental status is appropriate. Const: Vital Signs, click to edit/add: Vital Signs - 24 hr 01/04/25 08:15 01/04/25 09:08 01/04/25 09:12 Temperature 98.3 F Pulse Rate 62 63 Pulse Rate [Pulse Oximeter] 70 Respiratory Rate 18 17 23 Blood Pressure 151/92 H Blood Pressure [Ri ght Upper Arm] 160/92 H Pulse Oximetry 97 98 96 Oxygen Delivery Me thod Room Air 01/04/25 09:13 01/04/25 09:15 01/04/25 09:22 Temperature Pulse Rate 62 65 62 Pulse Rate [Pulse Oximeter] Respiratory Rate 21 15 Blood Pressure 146/88 H Blood Pressure [Ri ght Upper Arm] Pulse Oximetry 94 97 94 Oxygen Delivery Me thod 01/04/25 09:30 01/04/25 09:42 01/04/25 09:45 Temperature Pulse Rate 65 62 65 Pulse Rate [Pulse Oximeter] Respiratory Rate 17 16 Blood Pressure 134/95 H Blood Pressure [Ri ght Upper Arm] Pulse Oximetry 97 95 96 Oxygen Delivery Me thod 01/04/25 10:00 01/04/25 10:02 01/04/25 10:15 Temperature Pulse Rate 62 68 74 Pulse Rate [Pulse Oximeter] Respiratory Rate 8 L 15 45 H Blood Pressure 138/84 Blood Pressure [Ri ght Upper Arm] Pulse Oximetry 97 94 98 Oxygen Delivery Me thod 01/04/25 10:22 Temperature Pulse Rate 64 Pulse Rate [Pulse Oximeter] Respiratory Rate 15 Blood Pressure 150/107 H Blood Pressure [Ri ght Upper Arm] Pulse Oximetry 95 Oxygen Delivery Me thod Course Vital Signs Vital signs: Initial Vital Signs Temperature 98.3 F 01/04/25 08:15 Temperature Source Temporal Artery Scan 01/04/25 08:15 Pulse Rate 70 01/04/25 08:15 Respiratory Rate 18 01/04/25 08:15 Blood Pressure 160/92 H 01/04/25 08:15 Blood Pressure Mean 114 H 01/04/25 08:15 Blood Pressure Position Semi-Fowlers 01/04/25 08:15 Pulse Oximetry 97 01/04/25 08:15 Oxygen Delivery Method Room Air 01/04/25 08:15 Vital Signs Temperature 98.3 F 01/04/25 08:15 Pulse Rate 70 01/04/25 08:15 Respiratory Rate 18 01/04/25 08:15 Blood Pressure 160/92 H 01/04/25 08:15 Pulse Oximetry 97 01/04/25 08:15 Oxygen Delivery Method Room Air 01/04/25 08:15 Temperature 98.3 F 01/04/25 08:15 Pulse Rate 64 01/04/25 10:22 Respiratory Rate 15 01/04/25 10:22 Blood Pressure 150/107 H 01/04/25 10:22 Pulse Oximetry 95 01/04/25 10:22 Oxygen Delivery Method Room Air 01/04/25 08:15 Medications Administered Medications: Discontinued Medications Generic Name Dose Route Start Last Admin Trade Name Shakira PRN Reason Stop Dose Admin Sodium Chloride 500 mls @ 500 mls/hr 01/04/25 08:25 01/04/25 09:40 0.9 % Sodium Chloride 500 Ml IV 01/04/25 09:24 Infused .Q1H ONE Infusion Lorazepam 0.5 mg 01/04/25 08:25 01/04/25 08:45 Lorazepam 0.5 Mg Tablet PO 01/04/25 08:26 0.5 mg ONCE ONE Administration Medical Decision Making MDM Narrative Medical decision making narrative: A 9 year white male with a history of TAVR procedure for aortic stenosis aortic valve replacement, on aspirin, history of seizure disorder, and history of a TIA in the past. At this point I think it be reasonable to do a CT scan of his head, EKG, troponin, fluids, electrolyte checks, and he agrees to try some Ativan orally in case this is an anxiety exacerbation. He does have bilateral symptoms which would make stroke unlikely. He also has been on Keppra for seizure disorder and I think checking Keppra level be appropriate. It does not appear that he has had a seizure, and does not appear to have any focal neurologic finding. Disposition pending findings above. Addendum 10:15 a.m.: The patient does not feel much different he has occasional little tingling in his arms and legs again bilaterally. His head CT is unremarkable, his his Keppra level was sent out, he is given IV fluid. He appears hemodynamically stable, his EKG is normal, troponin negative, CRP is negative. At this point I do not have a great explanation for his dysesthesia that is migratory and in his arms chest bilateral face. I do not think this constitutes stroke given its bilateral nature, it may be simply anxiety. He struggles that the past he does request some anxiety medicine for home will send home with some small dose Ativan as needed use sparingly. Recommend he follow-up with Dr. Horan next few days will set up an appointment for him, to discuss ongoing anxiety and his dysesthesia. Return sooner problems or concerns. Lab Data Labs: Lab Results 01/04/25 01/04/25 Range/Units 08:26 08:50 WBC 4.75 (4.50-11.00) K/uL RBC 4.85 (4.30-5.90) m/uL Hgb 14.2 (13.5-17.5) gm/dL Hct 42.6 (37.0-53.0) % MCV 88 (80-100) fL MCH 29 (26-34) pg MCHC 33 (32-36) gm/dL RDW Coeff of Matilde 12.5 (11.5-15.5) % Plt Count 177 (140-440) K/uL Neut % (Auto) 71.7 (42.0-72.0) % Lymph % (Auto) 17.9 L (20-44) % [place] % (Auto) 6.9 (0.0-11.0) % Eos % (Auto) 2.5 (0.0-7.0) % Baso % (Auto) 0.8 (0.0-3.0) % Neut # (Auto) 3.40 (1.7-7.0) K/uL Lymph # (Auto) 0.90 (0.90-2.90) K/uL [place] # (Auto) 0.30 (0.00-0.90) K/UL Eos # (Auto) 0.12 (0.00-0.50) K/uL Baso # (Auto) 0.04 (0.00-0.30) K/uL Abs Immat Gran (auto) 0.01 (0.00-0.30) K/uL Imm/Tot Granulo (auto) 0.2 % Sodium 137 (135-149) mmol/L Potassium 3.7 (3.6-5.1) mmol/L Chloride 103 (96-114) mmol/L Carbon Dioxide 27 (20-32) mmol/L Anion Gap 7 (7-15) mEq/L BUN 15 (7-30) mg/dL Creatinine 1.1 (0.5-1.5) mg/dL Estimated GFR 65 ml/min Glucose 105 (60-115) mg/dL Calcium 8.7 (8.4-10.6) mg/dL Total Bilirubin 0.9 (0.1-1.5) mg/dL Direct Bilirubin 0.2 (0.0-0.5) mg/dL AST 26 (12-35) U/L ALT 15 (4-50) U/L Alkaline Phosphatase 69 (40-150) U/L C-Reactive Protein < 0.5 L (0.5-1.0) mg/dL NT-Pro-B Natriuret Pep 299 (See Note) pg/mL Total Protein 7.3 (6.0-8.3) g/dL Albumin 4.0 (3.3-5.0) g/dL POC Troponin I 0.01 (0.01-0.04) ng/ml Discharge Plan Discharge Clinical Impression: Dysesthesia, Anxiety Patient Disposition: Home w/ Parent or Adult Condition: Stable Additional Instructions: Follow-up with primary care to discuss potential anxiety causing some ear symptoms, recheck to the ED sooner problems concerns worsening. Will send home with some medicine to use sparingly for anxiety, few take this medicine do not drink drive or use any mechanical implements, as the medicine can be sedating. Follow up appointment is scheduled at the [facility] on 01/17 with a 9:45am appointment time. Please arrive at 9:35am to complete paperwork. If you have any questions or need to reschedule, please call [phone]. Prescriptions: No Action levetiracetam 500 mg tablet 500 mg PO BID Qty: 180 3RF tamsulosin 0.4 mg capsule 0.4 mg PO QDAY Qty: 90 3RF aspirin [Adult Low Dose Aspirin] 81 mg tablet,delayed release (DR/EC) 81 mg PO QDAY famotidine 20 mg tablet 20 mg PO QDAY Follow Up/Referrals: Lex Mckay MD [Primary Care Provider, Family Practice] Stand Alone Forms: [employer] Info Instructions
[2025-01-04] MEDS: 0.9 % SODIUM CHLORIDE 500 ML 500 ML IV (08:44)
--- OUTSIDE RECORDS SUMMARY | 2025-01-04 08:49 | XMS_ITS | Clinical Summary ---
Author Organization [facility] Address [address] [place] [id number] Care Team Providers Care Recreational Specialist Name Role Phone Lex Mckya MD Primary Care Provider Allergies No known active allergies Medications levETIRAcetam (KEPPRA) 500 mg tablet Take 500 mg by mouth two times daily. 11/24/2022 Active rosuvastatin (CRESTOR) 10 mg tablet Take 10 mg by mouth once daily. 11/11/2022 Active cyanocobalamin (VITAMIN B12) 1,000 mcg tablet Take 1,000 mcg by mouth once daily. Active folic acid/multivit-mi n/lutein (CENTRUM SILVER ORAL) Take 1 Tablet by mouth once daily. Adult Plus Active famotidine (PEPCID) 10 mg tablet Take 10 mg by mouth once daily. Active aspirin 325 mg tablet Take 325 mg by mouth once daily with a meal. Active Social History Tobacco Use Types Packs/Day Years Used Date Smoking Tobacco: Former Cigarettes 0.8 5 1 980 - 03/16/1984 Smokeless Tobacco: Never Tobacco Cessation:Counseling Given: Not Answered Alcohol Use Standard Drinks/Week Comments Not Currently 0 (1 standard drink = 0.6 oz pur e alcohol) Social Connections Answer Date Recorded Frequency of Communication with Friends and Fami ly Not on file 12/04/2022 Sex and Gender Information Value Date Recorded Sex Assigned at Not on file Legal Sex Male 6:57 AM CABLEMAN Gender Identity Not on file Sexual Orientation Not on file Obstetrics History Last Filed Vital Signs Vital Sign Reading Time Taken Comments Blood Pressure 162/82 04/24/2023 12:12 PM CABLEMAN Pulse 66 04/24/2023 12:12 PM CABLEMAN Temperature 37 C (98.6 F) 02/19/2023 8:50 AM CABLEMAN Respiratory Rate 16 02/19/2023 8:50 AM CABLEMAN Oxygen Saturation 97% 04/24/2023 12:12 PM CABLEMAN Inhaled Oxygen Concentration - - Weight 80.1 kg (176 lb 8 oz) 04/24/2023 12:12 PM CABLEMAN Height 170.2 cm (5' 7) 04/24/2023 12:12 PM CABLEMAN Body Mass Index 27.64 04/24/2023 12:12 PM CABLEMAN Plan of Treatment Health Maintenance Due Date Last Done Comments Tetanus booster 1948 Depression screening for age 12+ 1949 Pneumococcal series for age 50+ (1 of 2 - PCV) 1956 Zoster (shingles) series for age 50+ (1 of 2) 10/22/1987 Medicare Wellness for age 65+ 2002 RSV vaccine for adults or (1 - 1-dose 75+ series) 2012 BMI (ht and wt on same day) for age 18+ 04/24/2024 04/24/2023, 02/11/2023, 01/09/2023 COVID-19 vaccine series (3 - 2024- season) 2024 01/15/2023, 04/16/2022 Influenza Vaccine (#1) 2024 Hepatitis B series for 19+ Aged Out N o longer eligible based on patient's age to complete this topic Insurance MEDICARE PB ONLY MEDICA [employer] MEDICARE PART B HB ONLY MEDICARE PART A HB ONLY Advance Directives * Full Code (Latest Code Status on File) Date Activated Date Inactivated Comments 02/18/2023 4:52 PM 02/19/2023 2:17 PM Question Answer Comments Code Status Discussion: Reviewed Preferences Care Teams Recreational Specialist Relationship Specialty Start Date End Date Lex Mckay MD [id number] [place] [address] PCP - General Family Practice 04/14/23
[2025-01-04 09:06] LABS: Troponin, Point-of-Care* 0.01 ng/ml (0.01-0.04)
[2025-01-04 09:10] LABS: Hematocrit* 42.6 % (37.0-53.0); Hemoglobin* 14.2 gm/dL (13.5-17.5); Immature Granulocytes Abs Auto 0.01 K/uL (0.00-0.30); Immature Granulocytes Pct Auto 0.2 %; Mean Corpuscular HGB Conc 33 gm/dL (32-36); Mean Corpuscular Hemoglobin 29 pg (26-34); Mean Corpuscular Volume 88 fL (80-100); RDW Coefficient of Variation % 12.5 % (11.5-15.5); Red Blood Count* 4.85 m/uL (4.30-5.90); White Blood Count* 4.75 K/uL (4.50-11.00)
[2025-01-04 09:23] LABS: Lymphocytes Absolute Auto 0.90 K/uL (0.90-2.90); Slide Review Reflex No
[2025-01-04 09:32] LABS: Albumin* 4.0 g/dL (3.3-5.0); Chloride* 103 mmol/L (96-114); Sodium* 137 mmol/L (135-149)
[2025-01-04 09:33] LABS: Potassium* 3.7 mmol/L (3.6-5.1)
[2025-01-04 09:35] LABS: Blood Urea Nitrogen* 15 mg/dL (7-30); Creatinine* 1.1 mg/dL (0.5-1.5); Estimated Glomerular Filt Rate 65 ml/min
[2025-01-04 09:36] LABS: Alanine Aminotransferase* 15 U/L (4-50); Alkaline Phosphatase* 69 U/L (40-150); Anion Gap 7 mEq/L (7-15); Aspartate Amino Transferase* 26 U/L (12-35); Bilirubin Direct* 0.2 mg/dL (0.0-0.5); Bilirubin Total* 0.9 mg/dL (0.1-1.5); Calcium* 8.7 mg/dL (8.4-10.6); Carbon Dioxide* 27 mmol/L (20-32); Glucose* 105 mg/dL (60-115); Total Protein* 7.3 g/dL (6.0-8.3)
[2025-01-04 09:54] LABS: NT Pro B Type NatriureticPept* 299 pg/mL (See Note)
== END 2025-01-04 10:41 | disposition home or self-care (01) ==
PROVIDERS: Emergency Provider Family Medicine; PCP Family Medicine
DX: R20.8 Other disturbances of skin sensation (principal); F41.9 Anxiety disorder, unspecified
CPT/HCPCS: 36415; 70450; 80048; 80076; 80177; 83880; 84484; 85025; 86140; 93005; 94761; 96360; 99285; A9270; J7030